=== PATIENT | female | born 1980 | race African-American/Black ===

== ENCOUNTER → 2017-02-23 | Outpatient (CLI) | payer MEDICAID ==
[2017-02-23 13:45] LABS: CHLAM PCR NOT DETECTED (NOT DETECT)
== END ==
LOC: LAB 11:57
PROVIDERS: ATTEND Nurse Practitioner Acute Care
DX: R10.30 Lower abdominal pain, unspecified (principal)
CPT/HCPCS: 87210; 87491; 87591

== ENCOUNTER → 2017-03-16 | Outpatient (CLI) | payer MEDICAID ==
--- NOTE | 2017-03-16 16:15 | RADIOLOGY REPORT (SQ) ---
EXAM DESCRIPTION: LUMBAR SPINE COMPLETE COMPLETED DATE/TIME: 03/16/2017 3:53 pm REASON FOR STUDY: LOW BACK PAIN WITH LEFT SIDED SCIATICA M54.42 LUMBAGO WITH SCIATICA, LEFT SIDE COMPARISON: None. NUMBER OF VIEWS: Five views including obliques. TECHNIQUE: AP, lateral, oblique, and sacral radiographic images acquired of the lumbar spine. LIMITATIONS: None. FINDINGS: MINERALIZATION: Normal. SEGMENTATION: Normal. No transitional anatomy. ALIGNMENT: Normal. VERTEBRAE: Maintained height. No fracture or worrisome bone lesion. DISCS: Preserved height. No significant osteophytes or end plate irregularity. POSTERIOR ELEMENTS: Pedicles and facets are intact. No pars defect or posterior arch defects. HARDWARE: None in the spine. PARASPINAL SOFT TISSUES: Normal. PELVIS: Intact as visualized. No fractures or worrisome bone lesions. SI joints intact. OTHER: No other significant finding. IMPRESSION: NORMAL 5 VIEW LUMBAR SPINE. TECHNICAL DOCUMENTATION: JOB ID: [id number] [employer]- All Rights Reserved
== END ==
LOC: OD 15:34
PROVIDERS: ATTEND Family Medicine
DX: M54.42 Lumbago with sciatica, left side (principal)
CPT/HCPCS: 72110

== ENCOUNTER 2018-11-11 09:54 | Emergency (ER) | payer MEDICAID ==
--- NOTE | 2018-11-11 11:10 | ER Document Report ---
HPI - HPI Time Seen by Provider: 11/11/18 10:20 Pain Level: 5 Notes: Patient is an otherwise healthy 38-year-old female who presents with chief complaint of left knee pain. Patient reports last night she fell striking her left knee onto a hard surface. She has not taken any Tylenol or ibuprofen for this. She does report that there is a throbbing pain as well as swelling. Patient denies any history of previous trauma or surgeries to this area. Patient did ambulate into the emergency department without difficulty. - CONSTITUTIONAL Constitutional: DENIES: Fever, Chills - REPRODUCTIVE Reproductive: DENIES: : - MUSCULOSKELETAL Musculoskeletal: REPORTS: Extremity pain - left knee Past Medical History - General Information source: Patient - Social History Smoking Status: Current Every Day Smoker Frequency of alcohol use: Occasional Drug Abuse: None Family History: Reviewed & Not Pertinent Patient has suicidal ideation: No Patient has homicidal ideation: No Endocrine Medical History: Reports: Hx Graves' Disease Renal/ Medical History: Denies: Hx Peritoneal Dialysis Past Surgical History: Reports: Hx Section - x3 - Immunizations Hx Diphtheria, Pertussis, Tetanus Vaccination: Yes - <5 years Vertical Provider Document - CONSTITUTIONAL Notes: PHYSICAL EXAMINATION: GENERAL: Well-appearing, well-nourished and in no acute distress. HEAD: Atraumatic, normocephalic. EYES: Pupils equal round extraocular movements intact, conjunctiva are normal. ENT: Nares patent NECK: Normal range of motion LUNGS: No respiratory distress Musculoskeletal: Normal range of motion to left knee, mild edema without erythema or ecchymosis. No crepitus or deformity on palpation. Normal dorsalis pedis pulses as well as popliteal pulses. No alteration in sensation or motor distal to injury. NEUROLOGICAL: Normal speech, normal gait. PSYCH: Normal mood, normal affect. SKIN: Warm, Dry, normal turgor, no rashes or lesions noted. - INFECTION CONTROL TRAVEL OUTSIDE OF THE [place] IN LAST 30 DAYS: No Course - Re-evaluation Re-evalutation: 11/11/18 11:10 Patient declined offer of acetaminophen or ibuprofen. X-rays currently pending. X-ray negative for any acute findings. Patient will be discharged home in stable condition. - Vital Signs Vital signs: Temp Pulse Resp BP Pulse Ox 98.2 F 71 16 129/83 H 99 11/11/18 10:20 11/11/18 10:01 11/11/18 10:01 11/11/18 10:01 11/11/18 10:01 Procedures - Immobilization Left Knee Pre-Proc Neuro Vasc Exam: Normal Immobilizer type: Shree wrap Performed by: PCT Post-Proc Neuro Vasc Exam: Normal Alignment checked and good: Yes Discharge - Discharge Clinical Impression: Knee pain, left Qualifiers: Chronicity: acute Qualified Code(s): M25.562 - Pain in left knee Condition: Stable Disposition: HOME, SELF-CARE Additional Instructions: Sprained Knee Your sprained knee results from a stretching or tearing of the ligaments which support the joint. This often results from a bending stress -- such as a twisting fall while skiing or a "clip" while playing football. The ligaments will require time and protection to heal adequately. A knee sprain can be quite serious, and should be taken seriously. The usual treatment is splinting of the knee, ice packs, and elevation. You shouldn't walk on the leg if weightbearing is painful. Unless the sprain is obviously a minor one, follow-up exam is very important. The degree of ligament damage often cannot be fully assessed at first due to muscle spasm and pain. Your treatment plan may change based on the physician's findings during your follow-up examination. Call the doctor at once if there is severe swelling, increasing pain, numbness, or other alarming symptoms. Ice & Elevation Apply ice packs frequently against the painful area. Many different schedules are recommended, such as "20 minutes on, 20 minutes off" or "one hour ice, two hours rest." If you need to work, you may need to go longer between ice treatments. You should plan to have the area ice packed AT LEAST one-fourth of the time. The ice should be applied over the wrap, tape, or splint, or over a layer of cloth -- not directly against the skin. Some ice bags have a built-in cloth and can be put directly on the skin. Your injured part should be elevated as much as possible over the next 48 hours. Try to keep the injury above the level of the heart. Avoid use of the injured area. Elevation and rest will decrease the swelling. Your x-ray was negative for any fracture or dislocation. Please take ibuprofen 600 mg every 6 hours for pain and inflammation. Ice and elevate as outlined above wear the Shree wrap for compression. If your symptoms do not improve over the next 1-2 weeks please follow-up with either your primary care provider or the orthopedic provider that I have outlined on your paperwork. Prescriptions: RX: Ibuprofen [Motrin 800 mg Tablet] 800 mg PO Q8H PRN #40 tab PRN Reason: Referrals: LAUREN BRO DO [ACTIVE STAFF] - Follow up as needed
--- NOTE | 2018-11-11 11:18 | RADIOLOGY REPORT (SQ) ---
EXAM DESCRIPTION: KNEE LEFT 4 VIEW COMPLETED DATE/TIME: 11/11/2018 10:53 am REASON FOR STUDY: fell on knee COMPARISON: None. NUMBER OF VIEWS: Four views. TECHNIQUE: AP, lateral, and both oblique radiographic images acquired of the left knee. LIMITATIONS: None. FINDINGS: MINERALIZATION: Normal. BONES: No acute fracture or dislocation. No worrisome bone lesions. JOINT: No effusion. SOFT TISSUES: No soft tissue swelling. No radio-opaque foreign body. OTHER: No other significant finding. IMPRESSION: NEGATIVE STUDY OF THE LEFT KNEE. NO RADIOGRAPHIC EVIDENCE OF ACUTE INJURY. TECHNICAL DOCUMENTATION: JOB ID: [id number] [employer]- All Rights Reserved Reading location - IP/workstation name: [email or web address]
[2018-11-11 11:57] VITALS: BP 135/82
== END 2018-11-11 12:00 | disposition home or self-care (01) ==
LOC: ER 09:54
DX: M25.562 Pain in left knee (principal); W18.00XA Striking against unspecified object with subsequent fall, initial encounter; F17.200 Nicotine dependence, unspecified, uncomplicated
CPT/HCPCS: 99283

== ENCOUNTER 2019-05-18 00:29 | Emergency (ER) | payer MEDICAID ==
[2019-05-18 00:52] VITALS: BP 126/85
== END 2019-05-18 02:15 | disposition left against medical advice (07) ==
LOC: ER 00:29
DX: Z53.21 Procedure and treatment not carried out due to patient leaving prior to being seen by health care provider (principal)

== ENCOUNTER → 2019-09-09 | Outpatient (CLI) | payer MEDICAID ==
[2019-09-09 16:51] LABS: CHLAM PCR NOT DETECTED (NOT DETECT)
== END ==
LOC: OD 14:51
PROVIDERS: ATTEND Nurse Practitioner Acute Care
DX: R30.0 Dysuria (principal)
CPT/HCPCS: 87086; 87088; 87186; 87491; 87591

== ENCOUNTER 2019-11-10 09:26 | Emergency (ER) | payer MEDICAID ==
[2019-11-10 10:24] LABS: ABSOLUTE EOSINOPHILS # (AUTO) 0.2 10^3/uL (0.0-0.6); ABSOLUTE LYMPHOCYTES (AUTO) 1.9 10^3/uL (0.5-4.7); ABSOLUTE MONOCYTES (AUTO) 0.4 10^3/uL (0.1-1.4); ABSOLUTE NEUT (AUTO) 2.7 10^3/uL (1.7-8.2); BASOPHILS % (AUTO) 0.9 % (0-2); HEMATOCRIT 31.3 % (36.0-47.0); HEMOGLOBIN 9.5 g/dL (12.0-15.5); LYMPHOCYTES % (AUTO) 36.4 % (13-45); MEAN CORPUSCULAR HEMOGLOBIN 21.2 pg (27.0-33.4); MEAN CORPUSCULAR HGB CONC 30.5 g/dL (32.0-36.0); MEAN CORPUSCULAR VOLUME 70 fl (80-97); MONOCYTES % (AUTO) 7.6 % (3-13); PLATELET COUNT 495 10^3/uL (150-450); RED BLOOD COUNT 4.49 10^6/uL (3.72-5.28); RED CELL DISTRIBUTION WIDTH 18.4 % (11.5-14.0); SEGMENTED NEUTROPHILS % (AUTO) 52.1 % (42-78); TOTAL CELLS COUNTED % (AUTO) 100 %; WHITE BLOOD COUNT 5.1 10^3/uL (4.0-10.5)
--- NOTE | 2019-11-10 10:27 | ER Document Report ---
ED General - General Chief Complaint: Abdominal Injury Stated Complaint: ABDOMINAL PAIN, VAGINAL BLEEDING Primary Care Provider: ZAK HUGGINS, SHOVEL ENGINEER [NURSE PRACTITIONER] - Follow up as needed Mode of Arrival: Ambulatory Information source: Patient, [facility] Records Notes: 39-year-old female with hypothyroidism presents with lower abdominal cramping and irregular vaginal bleeding. Patient states that her last menstrual period ended 1 week prior to arrival but she has had intermittent bleeding since that time. She states that she only sees the blood when wiping. She denies any dysuria, increased urinary frequency, urgency but does admit to some left CVA tenderness. Patient denies vaginal discharge but does admit to unprotected sex with a new partner. TRAVEL OUTSIDE OF THE [place] IN LAST 30 DAYS: No - HPI Onset: Last week Onset/Duration: Gradual, Intermittent Quality of pain: Cramping Severity: Mild Associated symptoms: denies: Body/muscle aches, Chills, Diarrhea, Fever, Nausea, Vomiting, Shortness of breath, Weakness Exacerbated by: Denies Relieved by: Denies Similar symptoms previously: No Recently seen / treated by doctor: No - Related Data Allergies/Adverse Reactions: No Known Allergies Allergy (Verified 11/11/18 09:55) Home Medications: synthroid Past Medical History - General Information source: Patient, [facility] Records - Social History Smoking Status: Never Smoker Frequency of alcohol use: None Drug Abuse: None Lives with: Family Family History: Reviewed & Not Pertinent Patient has suicidal ideation: No Patient has homicidal ideation: No Endocrine Medical History: Reports: Hx Graves' Disease Renal/ Medical History: Denies: Hx Peritoneal Dialysis Past Surgical History: Reports: Hx Section - x3 - Immunizations Hx Diphtheria, Pertussis, Tetanus Vaccination: Yes - <5 years Review of Systems - Review of Systems Notes: REVIEW OF SYSTEMS: CONSTITUTIONAL : Denies fever, chills, or sweats. Denies recent illness. Denies weight loss, recent hospitalizations. EENT: Denies visual changes, eye pain. Denies sore throat, oral lesions, difficulty swallowing. CARDIOVASCULAR: Denies chest pain. Denies palpitations. Denies lower extremity edema. RESPIRATORY: Denies cough. Denies shortness of breath, wheezing. GASTROINTESTINAL: Denies abdominal distention. Denies nausea, vomiting, or d iarrhea. Denies blood in vomitus, stools, or per rectum. Denies black, tarry stools. Denies constipation. GENITOURINARY: Denies difficulty urinating, painful urination, frequency, blood in urine, or vaginal discharge. MUSCULOSKELETAL: Denies back or neck pain or stiffness. Denies joint pain or swelling. SKIN: Denies rash, lesions or sores. HEMATOLOGIC : Denies easy bruising or bleeding. LYMPHATIC: Denies swollen glands. NEUROLOGICAL: Denies confusion or altered mental status. Denies loss of consciousness. Denies dizziness or lightheadedness. Denies headache. Denies weakness or paralysis. Denies problems difficulty with ambulation, slurred speech. Denies sensory loss, numbness, or tingling. Denies seizures. PSYCHIATRIC: Denies anxiety or stress. Denies depression, suicidal ideation, or homicidal ideation. Denies visual or auditory hallucinations. Physical Exam - Vital signs Vitals: Temp Pulse Resp BP Pulse Ox 98.4 F 92 18 123/83 100 11/10/19 09:41 11/10/19 09:41 11/10/19 09:41 11/10/19 09:41 11/10/19 09:41 - Notes Notes: PHYSICAL EXAMINATION: GENERAL: Well-appearing, well-nourished and in no acute distress. HEAD: Atraumatic, normocephalic. EYES: Pupils equal round and reactive to light, extraocular movements intact, conjunctiva are normal. ENT: Nares patent, oropharynx clear without exudates. Moist mucous membranes. NECK: Normal range of motion, supple without lymphadenopathy LUNGS: Breath sounds clear to auscultation bilaterally and equal. No wheezes rales or rhonchi. HEART: Regular rate and rhythm without murmurs ABDOMEN: Soft, nontender, nondistended abdomen. No guarding, no rebound. No masses appreciated. Female : Pelvic exam; External genitalia unremarkable. Speculum exam with discharge/no discharge. Vaginal wall unremarkable. Os closed. No cervical motion tenderness. No adnexal tenderness or masses appreciated. Swabs obtained for gonorrhea, chlamydia and wet prep. Musculoskeletal: Normal range of motion, no pitting or edema. No cyanosis. NEUROLOGICAL: Cranial nerves grossly intact. Normal speech, normal gait. Normal sensory, motor exams PSYCH: Normal mood, normal affect. SKIN: Warm, Dry, normal turgor, no rashes or lesions noted. Course - Re-evaluation Re-evalutation: 11/10/19 10:26 ED Course History: 1 week of abdominal cramping, intermittent vaginal bleeding. Patient evaluated. Vital signs were reviewed. Patient is afebrile, normotensive. Previous medical records and nursing notes reviewed. Patient does not appear toxic or dehydrated they are in no acute distress Exam Findings: Suprapubic abdominal tenderness, left CVA tenderness Lab Findings: CBC is without leukocytosis does show a stable anemia. CMP shows no electrolte abnormalities and normal renal function. UA not consistent with UTI. Gonorrhea and chlamydia pending Patient Interventions/Monitor: Pelvic exam Revaluation: Patient resting comfortably. She was reassured after finding out she was not nor needing a blood transfusion. Advised her to return to her SYSTEMS PROTECTION TECHNICIAN for further evaluation of irregular vaginal bleeding. Patient was evaluated and treated as appropriate for the patient's presenting symptoms and complaint, with consideration of any critical or life threatening conditions that may be associated with their obtained history and exam as noted above. All results were discussed with patient and... Patient provided the opportunity to ask questions, and express concerns. Patient was educated on tr eatments based on their presumed diagnosis as noted above. At this time we will discharge the patient with return precautions and follow-up recommendations. Verbal discharge instructions given a the bedside. Medication warnings reviewed. Patient is in agreement with this plan and has verbalized understanding of return precautions. After careful consideration I feel that that patient can be safely discharged from the emergency department, they were advised to followup with a primary care physician in 2-3 days. Dictation on this chart was performed using voice recognition software and may result in unintended grammatical, spelling, syntax or errors. 11/10/19 10:27 11/10/19 12:08 Laboratory 11/10/19 11/10/19 11/10/19 09:54 09:54 10:36 WBC 5.1 RBC 4.49 Hgb 9.5 L Hct 31.3 L MCV 70 L MCH 21.2 L MCHC 30.5 L RDW 18.4 H Plt Count 495 H Lymph % (Auto) 36.4 Wirt % (Auto) 7.6 Eos % (Auto) 3.0 Baso % (Auto) 0.9 Absolute Neuts (auto) 2.7 Absolute Lymphs (auto) 1.9 Absolute Monos (auto) 0.4 Absolute Eos (auto) 0.2 Absolute Basos (auto) 0.0 Seg Neutrophils % 52.1 Sodium 139.5 Potassium 4.6 Chloride 102 Carbon Dioxide 28 Anion Gap 10 BUN 7 Creatinine 0.88 Est GFR ( Amer) > 60 Est GFR (MDRD) Non-Af > 60 Glucose 89 Calcium 9.5 Total Bilirubin 0.4 Direct Bilirubin 0.2 Neonat Total Bilirubin Not Reportable Neonat Direct Bilirubin Not Reportable Neonat Indirect Bili Not Reportable AST 18 ALT 9 Alkaline Phosphatase 100 Total Protein 8.0 Albumin 4.4 Lipase 151.5 Urine Color YELLOW Urine Appearance CLEAR Urine pH 6.0 Ur Specific [place] 1.023 Urine Protein 30 H Urine Glucose (UA) NEGATIVE Urine Ketones NEGATIVE Urine Blood MODERATE H Urine Nitrite NEGATIVE Urine Bilirubin NEGATIVE Urine Urobilinogen NEGATIVE Ur Leukocyte Esterase NEGATIVE Urine WBC (Auto) 1 Urine RBC (Auto) 4 Urine Bacteria (Auto) TRACE Squamous Epi Cells Auto 5 Urine Mucus (Auto) MANY Urine Ascorbic Acid NEGATIVE Urine HCG, Qual NEGATIVE Epi Cells (Wet Prep) Bacteria (Wet Prep) Trichomonas (Wet Prep) Vaginal WBC Vaginal Yeast 11/10/19 10:44 WBC RBC Hgb Hct MCV MCH MCHC RDW Plt Count Lymph % (Auto) Wirt % (Auto) Eos % (Auto) Baso % (Auto) Absolute Neuts (auto) Absolute Lymphs (auto) Absolute Monos (auto) Absolute Eos (auto) Absolute Basos (auto) Seg Neutrophils % Sodium Potassium Chloride Carbon Dioxide Anion Gap BUN Creatinine Est GFR ( Amer) Est GFR (MDRD) Non-Af Glucose Calcium Total Bilirubin Direct Bilirubin Neonat Total Bilirubin Neonat Direct Bilirubin Neonat Indirect Bili AST ALT Alkaline Phosphatase Total Protein Albumin Lipase Urine Color Urine Appearance Urine pH Ur Specific [place] Urine Protein Urine Glucose (UA) Urine Ketones Urine Blood Urine Nitrite Urine Bilirubin Urine Urobilinogen Ur Leukocyte Esterase Urine WBC (Auto) Urine RBC (Auto) Urine Bacteria (Auto) Squamous Epi Cells Auto Urine Mucus (Auto) Urine Ascorbic Acid Urine HCG, Qual Epi Cells (Wet Prep) 4+ EPITHELIALS SEEN Bacteria (Wet Prep) 4+ BACTERIA SEEN Trichomonas (Wet Prep) NO TRICHOMONAS SEEN Vaginal WBC RARE WBCS SEEN Vaginal Yeast NO YEAST SEEN Temp Pulse Resp BP Pulse Ox 98.4 F 92 18 123/83 100 11/10/19 09:41 11/10/19 09:41 11/10/19 09:41 11/10/19 09:41 11/10/19 09:41 - Vital Signs Vital signs: Temp Pulse Resp BP Pulse Ox 98.4 F 92 18 123/83 100 11/10/19 09:41 11/10/19 09:41 11/10/19 09:41 11/10/19 09:41 11/10/19 09:41 - Laboratory Result Diagrams: 11/10/19 09:54 11/10/19 09:54 Laboratory results interpreted by me: 11/10/19 11/10/19 09:54 10:36 Hgb 9.5 L Hct 31.3 L MCV 70 L MCH 21.2 L MCHC 30.5 L RDW 18.4 H Plt Count 495 H Urine Protein 30 H Urine Blood MODERATE H Discharge - Discharge Clinical Impression: Irregular vaginal bleeding Anemia Qualifiers: Anemia type: unspecified type Qualified Code(s): D64.9 - Anemia, unspecified Condition: Good Disposition: HOME, SELF-CARE Instructions: Vaginal Bleeding ([facility]), Anemia ([facility]) Additional Instructions: Follow up with your [id number] hours for further care or return to the ED IMMEDIATELY if symptoms worsen or you have any concerns. If you cannot afford to follow up with your primary care physician a list of low cost clinics have been provided at the end of your discharge papers as well. Most prescribed medications have multiple side effects. The safest thing to do is when filling your prescription speak to your pharmacist regarding possible interactions with your normal home medications and over the counter medications such as Ibuprofen, Tylenol, Benadryl. If you experience any symptoms that cause you discomfort or concern you should discontinue the medication immediately and return to the emergency room or call your primary care physician. Referrals: ZAK HUGGINS NP [NURSE PRACTITIONER] - Follow up as needed LLUVIA BLACKBURN MD [EMERITUS] - Follow up in 3-5 days
[2019-11-10 10:47] LABS: ALBUMIN 4.4 g/dL (3.5-5.0); ALKALINE PHOSPHATASE 100 U/L (38-126); ANION GAP 10 (5-19); ASPARTATE AMINO TRANSFERASE 18 U/L (14-36); BILIRUBIN,DIRECT 0.2 mg/dL (0.0-0.4); BILIRUBIN,TOTAL 0.4 mg/dL (0.2-1.3); BLOOD UREA NITROGEN 7 mg/dL (7-20); CALCIUM 9.5 mg/dL (8.4-10.2); CARBON DIOXIDE 28 mmol/L (22-30); CHLORIDE 102 mmol/L (98-107); GLUCOSE 89 mg/dL (75-110); POTASSIUM 4.6 mmol/L (3.6-5.0)
[2019-11-10 10:56] LABS: BACTERIA (WET MOUNT) 4+ BACTERIA SEEN; EPITHELIALS (WET MOUNT) 4+ EPITHELIALS SEEN; T.VAGINALIS (WET MOUNT) NO TRICHOMONAS SEEN; WBCS (WET MOUNT) RARE WBCS SEEN; YEAST (WET MOUNT) NO YEAST SEEN
[2019-11-10 11:02] LABS: APPEARANCE,URINE CLEAR; BILIRUBIN,URINE NEGATIVE (NEGATIVE); COLOR,URINE YELLOW; GLUCOSE, URINE NEGATIVE (NEGATIVE); KETONES,URINE NEGATIVE (NEGATIVE); LEUKOCYTE ESTERASE,URINE NEGATIVE (NEGATIVE); NITRITE,URINE NEGATIVE (NEGATIVE); PROTEIN,URINE 30 mg/dL (NEGATIVE); URINE SPECIFIC GRAVITY 1.023; UROBILINOGEN,URINE NEGATIVE mg/dL (<2.0)
[2019-11-10 12:23] LABS: CHLAM PCR NOT DETECTED (NOT DETECT)
[2019-11-10 12:25] VITALS: BP 119/80
== END 2019-11-10 12:25 | disposition home or self-care (01) ==
LOC: ER 09:26
DX: N92.5 Other specified irregular menstruation (principal); D64.9 Anemia, unspecified; R10.30 Lower abdominal pain, unspecified
CPT/HCPCS: 36415; 80053; 81001; 81025; 83690; 85025; 87210; 87491; 87591; 99284

== ENCOUNTER → 2020-04-14 | Outpatient (CLI) | payer MEDICAID ==
--- NOTE | 2020-04-14 14:38 | RADIOLOGY REPORT (SQ) ---
EXAM DESCRIPTION: KNEE LEFT 3 VIEWS IMAGES COMPLETED DATE/TIME: 04/14/2020 1:36 pm REASON FOR STUDY: INJURY OF LEFT KNEE S89.92XA UNSPECIFIED INJURY OF LEFT LOWER LEG, INITIAL ENCOU COMPARISON: None. NUMBER OF VIEWS: Three views. TECHNIQUE: AP, lateral, and sunrise patella radiographic images acquired of the left knee. LIMITATIONS: None. FINDINGS: MINERALIZATION: Normal. BONES: No acute fracture or dislocation. Slight marginal spurring mediolateral compartments of the k nee. Small patellar pole osteophytes. JOINT: No effusion. SOFT TISSUES: No soft tissue swelling. No radio-opaque foreign body. OTHER: No other significant finding. IMPRESSION: 1. No acute osseous findings. TECHNICAL DOCUMENTATION: JOB ID: [id number] [employer]- All Rights Reserved Reading location - IP/workstation name: [email or web address]
== END ==
LOC: RAD 13:13
PROVIDERS: ATTEND Nurse Practitioner Family
DX: S89.92XA Unspecified injury of left lower leg, initial encounter (principal); X58.XXXA Exposure to other specified factors, initial encounter